=== PATIENT | male | born 1955 | race Caucasian/White ===

== ENCOUNTER → 2021-05-10 | Outpatient (CLI) | payer MEDICARE ==
[~2021-05-10] MED LIST: ASPIR-LOW81 MG PO; CELEBREX100 MG PO; FLONASE 0.05% N16 GM; GLUCOPHAGE1000 MG PO; GLUCOTROL5 MG PO; LIPITOR TAB 2020 MG PO; LISINOPRIL-HCT1 EAC2 PO; METOPROLOL TART50 MG PO; NEURONTIN 400400 MG PO; SYNTHROID100 MCG PO; ZANTAC300 MG PO
== END ==
LOC: HEART 5 04-19 08:00
DX: R07.9 Chest pain, unspecified (principal); E11.9 Type 2 diabetes mellitus without complications
CPT/HCPCS: 78452; A9502